=== PATIENT | female | born 1930 | race Caucasian/White ===

== ENCOUNTER 2022-02-05 22:23 | Inpatient (IN) ==
[2022-02-05 23:13] LABS: Bacteria,Urine Moderate /HPF (Few); Bilirubin,Urine Negative (Negative); Blood, Urine Negative (Negative); Glucose,Urine (UA) Negative (Negative); Hyaline Casts,Urine 3 /LPF (0-3); Ketones,Urine Negative (Negative); Mucus,Urine Occasional /LPF (Occasional); Nitrite,Urine Positive (Negative); Protein,Urine Negative (Negative); RBC,Urine 1 /HPF (0-4); Squamous Epithelial Cell,Urine Occasional /HPF (0-10); Urine Appearance Clear (Clear); Urine Color Yellow (Yellow); Urine Specific Gravity 1.015 (1.001-1.035); Urine Urobilinogen 0.2 eU/dL (<2.0)
[2022-02-05 23:18] LABS: Basophils # 0.1 10*3/uL (0.0-0.2); Basophils % 0.9 % (0.0-0.8); Eosinophils # 0.2 10*3/uL (0.0-0.87); Eosinophils % 2.4 % (0.00-10.9); Hematocrit 40.7 VOL% (35.7-47.0); Hemoglobin 13.4 GM/DL (12.0-16.0); Immature Granulocytes % 0.9 %; Immature Granulocytes Absolute 0.06 #; Lymphocytes # 1.8 10*3/uL (1.4-4.0); Lymphocytes % 27.1 % (21.3-54.2); Mean Corpuscular HGB Conc 32.9 GM/DL (32-36); Mean Corpuscular Volume 96.4 FL (87-102); Mean Platelet Volume 9.7 FL (9.6-12.0); Monocytes % 14.4 % (1.7-12.7); Neutrophils % 54.3 % (38.7-73.9); Platelet Count 219 T/CUMM (130-400); Red Blood Count 4.22 MC/CUMM (3.8-5.5); Red Cell Distribution Width 14.9 % (9.3-17.3); White Blood Count 6.6 T/CUMM (4-12)
[2022-02-05 23:32] LABS: Partial Thromboplastin Time 29.1 SECS (23.8-32.1)
[2022-02-05 23:35] LABS: Alanine Aminotransferase 63 U/L (13-56); Albumin 3.6 G/DL (3.4-5.0); Alkaline Phosphatase 80 U/L (45-117); Aspartate Amino Transferase 44 U/L (0-37); Bilirubin,Total < 0.39 MG/DL (0.20-1.00); Blood Urea Nitrogen 36 MG/DL (7-18); Calcium 8.6 MG/DL (8.5-10.1); Carbon Dioxide 27 MMOL/L (21-32); Chloride 110 MMOL/L (98-107); Glucose 123 MG/DL (74-106); Osmolality,Calculated 289.3 MOS/KG (273-304); Potassium 4.8 MMOL/L (3.5-5.1); Sodium 141 MMOL/L (136-145); Total Protein 7.5 G/DL (6.4-8.2)
[2022-02-06] MEDS: DEXTROSE 5% NACL 0.9% 1,000 ML IV SCH ×3 (00:29→17:17)
[2022-02-06] MEDS: MORPHINE 2 MG/1 ML SYRINGE IV PRN ×5 (00:30→21:31)
[2022-02-06] MEDS: ONDANSETRON 4 MG/2 ML VIAL IV PRN ×2 (00:30→11:49)
[2022-02-06 04:57] LABS: Basophils % 0.2 % (0.0-0.8); Eosinophils % 0.2 % (0.00-10.9); Hematocrit 37.5 VOL% (35.7-47.0); Hemoglobin 12.3 GM/DL (12.0-16.0); Immature Granulocytes Absolute 0.09 #; Lymphocytes # 1.1 10*3/uL (1.4-4.0); Lymphocytes % 12.8 % (21.3-54.2); Mean Corpuscular HGB Conc 32.8 GM/DL (32-36); Mean Corpuscular Volume 95.7 FL (87-102); Mean Platelet Volume 9.7 FL (9.6-12.0); Monocytes # 0.7 10*3/uL (0.11-0.8); Monocytes % 7.8 % (1.7-12.7); Platelet Count 207 T/CUMM (130-400); Red Blood Count 3.92 MC/CUMM (3.8-5.5); Red Cell Distribution Width 14.9 % (9.3-17.3); White Blood Count 8.9 T/CUMM (4-12)
[2022-02-06 05:24] LABS: Alanine Aminotransferase 56 U/L (13-56); Albumin 3.5 G/DL (3.4-5.0); Alkaline Phosphatase 66 U/L (45-117); Aspartate Amino Transferase 41 U/L (0-37); Bilirubin,Total < 0.39 MG/DL (0.20-1.00); Blood Urea Nitrogen 33 MG/DL (7-18); Calcium 8.8 MG/DL (8.5-10.1); Carbon Dioxide 26 MMOL/L (21-32); Chloride 110 MMOL/L (98-107); Glucose 151 MG/DL (74-106); Osmolality,Calculated 290.3 MOS/KG (273-304); Potassium 4.4 MMOL/L (3.5-5.1); Sodium 141 MMOL/L (136-145); Total Protein 6.9 G/DL (6.4-8.2)
[2022-02-06] MEDS: PANTOPRAZOLE 40 MG VIAL IV SCH (11:44)
[2022-02-06] MEDS: METOPROLOL TARTRATE 25 MG TABLET PO SCH ×2 (11:45→21:27)
[2022-02-06] MEDS: AMIODARONE 200 MG TABLET PO SCH (11:50)
[2022-02-06] MEDS: amLODIPine 5 MG TABLET PO SCH (11:50)
[2022-02-06] MEDS: POTASSIUM CHLORIDE 20 MEQ TABLET PO SCH ×2 (16:57→21:28)
[2022-02-07] MEDS: DEXTROSE 5% NACL 0.9% 1,000 ML IV SCH ×2 (04:59→09:20)
[2022-02-07 05:16] LABS: Basophils % 0.4 % (0.0-0.8); Eosinophils # 0.1 10*3/uL (0.0-0.87); Eosinophils % 0.9 % (0.00-10.9); Hematocrit 39.2 VOL% (35.7-47.0); Hemoglobin 12.3 GM/DL (12.0-16.0); Immature Granulocytes % 0.6 %; Immature Granulocytes Absolute 0.06 #; Lymphocytes # 0.9 10*3/uL (1.4-4.0); Lymphocytes % 9.1 % (21.3-54.2); Mean Corpuscular HGB Conc 31.4 GM/DL (32-36); Mean Corpuscular Volume 97.3 FL (87-102); Mean Platelet Volume 10.3 FL (9.6-12.0); Monocytes # 1.1 10*3/uL (0.11-0.8); Monocytes % 11.5 % (1.7-12.7); Neutrophils % 77.5 % (38.7-73.9); Platelet Count 199 T/CUMM (130-400); Red Blood Count 4.03 MC/CUMM (3.8-5.5); Red Cell Distribution Width 15.1 % (9.3-17.3); White Blood Count 9.7 T/CUMM (4-12)
[2022-02-07 05:36] LABS: Calcium 8.3 MG/DL (8.5-10.1); Osmolality,Calculated 281.4 MOS/KG (273-304); Potassium 4.3 MMOL/L (3.5-5.1)
[2022-02-07] MEDS: POTASSIUM CHLORIDE 20 MEQ TABLET PO SCH ×3 (09:18→20:51)
[2022-02-07] MEDS: COENZYME Q10 100 MG CAPSULE PO SCH (09:18)
[2022-02-07] MEDS: METOPROLOL TARTRATE 25 MG TABLET PO SCH ×2 (09:18→20:51)
[2022-02-07] MEDS: AMIODARONE 200 MG TABLET PO SCH (09:18)
[2022-02-07] MEDS: MULTIVITAMIN (OCUVITE) TABLET PO SCH (09:19)
[2022-02-07] MEDS: MAGNESIUM OXIDE 400 MG TABLET PO SCH (09:19)
[2022-02-07] MEDS: FUROSEMIDE 40 MG TABLET PO SCH (09:19)
[2022-02-07] MEDS: ASPIRIN EC 81 MG TABLET PO SCH (09:19)
[2022-02-07] MEDS: MULTIVITAMIN (CENTRUM) TABLET PO SCH (09:19)
[2022-02-07] MEDS: amLODIPine 5 MG TABLET PO SCH (09:19)
[2022-02-07] MEDS: PANTOPRAZOLE 40 MG VIAL IV SCH (09:22)
[2022-02-07] MEDS ORDERED: FUROSEMIDE 40 MG/4 ML VIAL IV ONE (13:27)
[2022-02-08 06:08] LABS: Basophils # 0.1 10*3/uL (0.0-0.2); Basophils % 0.6 % (0.0-0.8); Eosinophils # 0.1 10*3/uL (0.0-0.87); Eosinophils % 1.2 % (0.00-10.9); Hematocrit 37.3 VOL% (35.7-47.0); Hemoglobin 12.2 GM/DL (12.0-16.0); Immature Granulocytes % 0.7 %; Immature Granulocytes Absolute 0.06 #; Lymphocytes # 1.2 10*3/uL (1.4-4.0); Lymphocytes % 13.9 % (21.3-54.2); Mean Corpuscular HGB Conc 32.7 GM/DL (32-36); Mean Corpuscular Volume 95.6 FL (87-102); Mean Platelet Volume 9.9 FL (9.6-12.0); Monocytes % 11.2 % (1.7-12.7); Neutrophils % 72.4 % (38.7-73.9); Platelet Count 167 T/CUMM (130-400); Red Cell Distribution Width 14.6 % (9.3-17.3); White Blood Count 8.9 T/CUMM (4-12)
[2022-02-08 06:30] LABS: Calcium 8.2 MG/DL (8.5-10.1); Osmolality,Calculated 282.3 MOS/KG (273-304); Potassium 3.6 MMOL/L (3.5-5.1)
[2022-02-08] MEDS ORDERED: DESFLURANE 1 UNIT/15 MINUTE INH ONE (06:50)
[2022-02-08] MEDS ORDERED: LIDOCAINE 2% 5 ML VIAL ONE (06:50)
[2022-02-08] MEDS ORDERED: propofoL 200 MG/20 ML VIAL IV ONE (06:50)
[2022-02-08] MEDS ORDERED: ROCURONIUM 50 MG/5 ML VIAL IV ONE (06:50)
[2022-02-08] MEDS ORDERED: fentaNYL 100 MCG/2 ML VIAL ONE (06:51)
[2022-02-08] MEDS ORDERED: buprenorphine HCL 0.3 MG/ML VIAL ONE (07:07)
[2022-02-08] MEDS: MULTIVITAMIN (OCUVITE) TABLET PO SCH (08:05)
[2022-02-08] MEDS: AMIODARONE 200 MG TABLET PO SCH (08:05)
[2022-02-08] MEDS: COENZYME Q10 100 MG CAPSULE PO SCH (08:05)
[2022-02-08] MEDS: ASPIRIN EC 81 MG TABLET PO SCH (08:05)
[2022-02-08] MEDS: MULTIVITAMIN (CENTRUM) TABLET PO SCH (08:05)
[2022-02-08] MEDS: POTASSIUM CHLORIDE 20 MEQ TABLET PO SCH ×3 (08:05→21:11)
[2022-02-08] MEDS: MAGNESIUM OXIDE 400 MG TABLET PO SCH (08:05)
[2022-02-08] MEDS: FUROSEMIDE 40 MG TABLET PO SCH (08:05)
[2022-02-08] MEDS: METOPROLOL TARTRATE 25 MG TABLET PO SCH ×2 (08:05→21:12)
[2022-02-08] MEDS: amLODIPine 5 MG TABLET PO SCH (08:05)
[2022-02-08] MEDS: PANTOPRAZOLE 40 MG VIAL IV SCH (08:06)
[2022-02-08] MEDS ORDERED: ceFAZolin 1,000 MG VIAL ONE (08:41)
[2022-02-08] MEDS ORDERED: TUBERCULIN SKIN TEST 0.1 ML SYRINGE INTRADERM ONE (09:15)
[2022-02-08] MEDS: RIVAROXABAN 2.5 MG TABLET PO SCH ×2 (09:46→21:11)
[2022-02-08] MEDS: ALBUTEROL/IPRATROPIUM 3 ML NEB RESP TX SCH ×5 (10:30→23:18)
[2022-02-08] MEDS ORDERED: ALBUTEROL/IPRATROPIUM 3 ML NEB RESP TX ONE (10:39)
[2022-02-08] MEDS ORDERED: FUROSEMIDE 40 MG/4 ML VIAL IV ONE (12:00)
[2022-02-08] MEDS: ACETAMINOPHEN 325 MG TABLET PO PRN (21:12)
[2022-02-09] MEDS: ALBUTEROL/IPRATROPIUM 3 ML NEB RESP TX SCH ×5 (03:02→19:19)
[2022-02-09 05:08] LABS: Basophils % 0.3 % (0.0-0.8); Eosinophils % 0.1 % (0.00-10.9); Hematocrit 35.1 VOL% (35.7-47.0); Hemoglobin 11.6 GM/DL (12.0-16.0); Immature Granulocytes % 0.6 %; Immature Granulocytes Absolute 0.07 #; Lymphocytes % 8.8 % (21.3-54.2); Mean Corpuscular Volume 95.4 FL (87-102); Mean Platelet Volume 10.3 FL (9.6-12.0); Monocytes # 1.3 10*3/uL (0.11-0.8); Monocytes % 11.5 % (1.7-12.7); Neutrophils % 78.7 % (38.7-73.9); Platelet Count 162 T/CUMM (130-400); Red Blood Count 3.68 MC/CUMM (3.8-5.5); Red Cell Distribution Width 14.7 % (9.3-17.3); White Blood Count 11.5 T/CUMM (4-12)
[2022-02-09 05:21] LABS: Calcium 8.1 MG/DL (8.5-10.1); Osmolality,Calculated 279.8 MOS/KG (273-304); Potassium 4.7 MMOL/L (3.5-5.1)
[2022-02-09] MEDS: POTASSIUM CHLORIDE 20 MEQ TABLET PO SCH ×3 (08:06→21:29)
[2022-02-09] MEDS: MULTIVITAMIN (OCUVITE) TABLET PO SCH (08:06)
[2022-02-09] MEDS: MAGNESIUM OXIDE 400 MG TABLET PO SCH (08:07)
[2022-02-09] MEDS: PANTOPRAZOLE 40 MG VIAL IV SCH (08:07)
[2022-02-09] MEDS: FUROSEMIDE 40 MG TABLET PO SCH (08:07)
[2022-02-09] MEDS: ACETAMINOPHEN 325 MG TABLET PO PRN ×2 (08:07→21:29)
[2022-02-09] MEDS: COENZYME Q10 100 MG CAPSULE PO SCH (08:07)
[2022-02-09] MEDS: ASPIRIN EC 81 MG TABLET PO SCH (08:07)
[2022-02-09] MEDS: MULTIVITAMIN (CENTRUM) TABLET PO SCH (08:08)
[2022-02-09] MEDS: AMIODARONE 200 MG TABLET PO SCH (08:14)
[2022-02-09] MEDS: amLODIPine 5 MG TABLET PO SCH (08:15)
[2022-02-09] MEDS: METOPROLOL TARTRATE 25 MG TABLET PO SCH ×2 (08:15→21:30)
[2022-02-09] MEDS: RIVAROXABAN 2.5 MG TABLET PO SCH ×2 (08:15→21:35)
[2022-02-09] MEDS: PIPERACILLIN/TAZOBACTAM 3,375 MG in SODIUM CHLORIDE 0.9% 100 ML IV SCH ×2 (09:42→16:16)
[2022-02-10] MEDS: PIPERACILLIN/TAZOBACTAM 3,375 MG in SODIUM CHLORIDE 0.9% 100 ML IV SCH ×3 (00:06→18:03)
[2022-02-10] MEDS: ALBUTEROL/IPRATROPIUM 3 ML NEB RESP TX SCH ×7 (00:07→23:10)
[2022-02-10] MEDS: ACETAMINOPHEN 325 MG TABLET PO PRN ×4 (02:21→21:49)
[2022-02-10 05:39] LABS: Basophils % 0.2 % (0.0-0.8); Eosinophils # 0.1 10*3/uL (0.0-0.87); Eosinophils % 0.5 % (0.00-10.9); Hematocrit 31.9 VOL% (35.7-47.0); Hemoglobin 10.4 GM/DL (12.0-16.0); Immature Granulocytes % 0.4 %; Immature Granulocytes Absolute 0.04 #; Lymphocytes # 1.2 10*3/uL (1.4-4.0); Lymphocytes % 12.1 % (21.3-54.2); Mean Corpuscular HGB Conc 32.6 GM/DL (32-36); Mean Corpuscular Volume 95.5 FL (87-102); Mean Platelet Volume 10.5 FL (9.6-12.0); Monocytes # 1.3 10*3/uL (0.11-0.8); Monocytes % 13.1 % (1.7-12.7); Neutrophils % 73.7 % (38.7-73.9); Platelet Count 168 T/CUMM (130-400); Red Blood Count 3.34 MC/CUMM (3.8-5.5); Red Cell Distribution Width 14.6 % (9.3-17.3); White Blood Count 9.7 T/CUMM (4-12)
[2022-02-10 05:54] LABS: Calcium 8.3 MG/DL (8.5-10.1); Osmolality,Calculated 283.5 MOS/KG (273-304); Potassium 4.6 MMOL/L (3.5-5.1)
[2022-02-10] MEDS: MAGNESIUM OXIDE 400 MG TABLET PO SCH (09:25)
[2022-02-10] MEDS: AMIODARONE 200 MG TABLET PO SCH (09:25)
[2022-02-10] MEDS: FUROSEMIDE 40 MG TABLET PO SCH (09:25)
[2022-02-10] MEDS: RIVAROXABAN 2.5 MG TABLET PO SCH ×2 (09:25→21:51)
[2022-02-10] MEDS: MULTIVITAMIN (OCUVITE) TABLET PO SCH (09:25)
[2022-02-10] MEDS: COENZYME Q10 100 MG CAPSULE PO SCH (09:25)
[2022-02-10] MEDS: POTASSIUM CHLORIDE 20 MEQ TABLET PO SCH ×3 (09:25→21:52)
[2022-02-10] MEDS: MULTIVITAMIN (CENTRUM) TABLET PO SCH (09:25)
[2022-02-10] MEDS: ASPIRIN EC 81 MG TABLET PO SCH (09:25)
[2022-02-10] MEDS: METOPROLOL TARTRATE 25 MG TABLET PO SCH ×2 (09:29→22:05)
[2022-02-10] MEDS: amLODIPine 5 MG TABLET PO SCH (09:30)
[2022-02-10] MEDS: PANTOPRAZOLE 40 MG VIAL IV SCH (14:06)
[2022-02-11] MEDS: PIPERACILLIN/TAZOBACTAM 3,375 MG in SODIUM CHLORIDE 0.9% 100 ML IV SCH ×2 (01:36→08:40)
[2022-02-11] MEDS: ACETAMINOPHEN 325 MG TABLET PO PRN ×2 (02:46→08:41)
[2022-02-11] MEDS: ALBUTEROL/IPRATROPIUM 3 ML NEB RESP TX SCH ×3 (03:13→10:34)
[2022-02-11 05:32] LABS: Basophils % 0.3 % (0.0-0.8); Eosinophils # 0.2 10*3/uL (0.0-0.87); Eosinophils % 1.8 % (0.00-10.9); Hematocrit 32.1 VOL% (35.7-47.0); Hemoglobin 10.6 GM/DL (12.0-16.0); Immature Granulocytes % 0.9 %; Immature Granulocytes Absolute 0.09 #; Lymphocytes # 0.9 10*3/uL (1.4-4.0); Lymphocytes % 9.2 % (21.3-54.2); Mean Corpuscular Volume 95.3 FL (87-102); Mean Platelet Volume 10.1 FL (9.6-12.0); Monocytes # 1.3 10*3/uL (0.11-0.8); Neutrophils % 74.8 % (38.7-73.9); Platelet Count 182 T/CUMM (130-400); Red Blood Count 3.37 MC/CUMM (3.8-5.5); Red Cell Distribution Width 14.6 % (9.3-17.3); White Blood Count 9.6 T/CUMM (4-12)
[2022-02-11 05:45] LABS: Calcium 8.4 MG/DL (8.5-10.1); Osmolality,Calculated 281.8 MOS/KG (273-304); Potassium 4.7 MMOL/L (3.5-5.1)
[2022-02-11] MEDS: MULTIVITAMIN (OCUVITE) TABLET PO SCH (08:40)
[2022-02-11] MEDS: COENZYME Q10 100 MG CAPSULE PO SCH (08:40)
[2022-02-11] MEDS: MULTIVITAMIN (CENTRUM) TABLET PO SCH (08:40)
[2022-02-11] MEDS: FUROSEMIDE 40 MG TABLET PO SCH (08:41)
[2022-02-11] MEDS: MAGNESIUM OXIDE 400 MG TABLET PO SCH (08:41)
[2022-02-11] MEDS: ASPIRIN EC 81 MG TABLET PO SCH (08:41)
[2022-02-11] MEDS: AMIODARONE 200 MG TABLET PO SCH (08:41)
[2022-02-11] MEDS: PANTOPRAZOLE 40 MG VIAL IV SCH (08:45)
[2022-02-11] MEDS ORDERED: POTASSIUM CHLORIDE 20 MEQ TABLET PO SCH (09:00)
[2022-02-11] MEDS ORDERED: PANTOPRAZOLE 40 MG TABLET PO SCH (09:00)
[2022-02-11] MEDS: METOPROLOL TARTRATE 25 MG TABLET PO SCH (09:10)
[2022-02-11] MEDS: amLODIPine 5 MG TABLET PO SCH (09:10)
[2022-02-11 13:18] VITALS: BP 142/52
[2022-02-11] MEDS ORDERED: RIVAROXABAN 15 MG TABLET PO SCH (17:00)
== END 2022-02-11 13:50 | disposition swing bed (61) | DRG 521 ==
LOC: EDBD → EDUNIT# → N.ED 22:23 → N.EDINP 22:23 → N.3E 02-06 16:26
PROVIDERS: ADMIT Internal Medicine; ATTEND Internal Medicine